=== PATIENT | male | born 1935 | race Caucasian/White ===

== ENCOUNTER 2017-11-30 13:15 | Inpatient (IN) | payer MEDICAID, MEDICARE ==
[~2017-11-30] VITALS: Ht 170.2 cm; Wt 51.6 kg
[~2017-11-30 13:15] MED LIST: BRIM5DRO3 EACHEYE; CARB1TAB PO; CARB1TAB43 PO; CARB1TAB48 PO; CEFD300C37 PO; CHOL10003 PO; CITA20TA9 PO; ENTA200T PO; ENTA200T22 PO; GABA-827 PO; MAGN400T26 PO; PRAM1TAB5 PO; TAMS-11 PO; TRAZ50TA18 PO
[2017-11-30] MEDS ORDERED: SODIUM CHLORIDE 0.9% 1,000ML IVBOLUS ONE (14:00)
[2017-11-30 14:21] LABS: BASOPHILS # (AUTO) 0.02 x10^3/uL (0-0.1); BASOPHILS % (AUTO) 0 % (0-1); EOSINOPHILS # (AUTO) 0.44 x10^3/uL (0-0.4); EOSINOPHILS % (AUTO) 7 % (1-7); LYMPHOCYTES # (AUTO) 1.01 x10^3/uL (1-3.4); LYMPHOCYTES % (AUTO) 16 % (22-44); MD NO; MEAN CORPUSCULAR HEMOGLOBIN 31.1 pg (27.5-34.5); MEAN CORPUSCULAR VOLUME 94.2 fL (81-97); MEAN PLATELET VOLUME 8.9 fL (7.4-10.4); MONOCYTES % (AUTO) 8 % (2-9); NEUTROPHILS # (AUTO) 4.51 x10^3/uL (1.8-6.8); NEUTROPHILS % (AUTO) 70 % (42-75); PLATELET COUNT 232 x10^3/uL (130-400); RED BLOOD COUNT 3.85 x10^6/uL (4.38-5.82)
[2017-11-30 14:29] LABS: INTERNATIONAL NORMALIZED RATIO 1.03 (0.93-1.1); PROTHROMBIN TIME 10.6 Seconds (9.6-11.5)
[2017-11-30] MEDS ORDERED: ERTAPENEM 1 GM in SODIUM CHLORIDE 0.9% 50 ML IV ONE (14:30)
[2017-11-30 14:31] LABS: ALANINE AMINOTRANSFERASE 8 U/L (12-78); ANION GAP 5 mmol/L (5-15); CALCIUM 7.9 mg/dL (8.5-10.1); CHLORIDE 109 mmol/L (98-107); CREATININE 0.58 mg/dL (0.7-1.3)
[2017-11-30] MEDS ORDERED: CARB1TAB48 PO (14:32)
[2017-11-30 14:34] LABS: ALKALINE PHOSPHATASE 88 U/L (45-117); BILIRUBIN,TOTAL 0.4 mg/dL (0.2-1.0); TOTAL PROTEIN 6.3 g/dL (6.4-8.2)
[2017-11-30] MEDS ORDERED: CIPR500T3 PO (14:36)
[2017-11-30 14:37] LABS: CULTURE INDICATED? YES; MICROSCOPIC INDICATED
[2017-11-30] MEDS ORDERED: ENTA200T22 PO (14:38)
[2017-11-30] MEDS ORDERED: LACT1CAP3 PO (14:39)
[2017-11-30] MEDS ORDERED: MULT-516 PO (14:40)
[2017-11-30] MEDS ORDERED: MAGN400O7 PO (14:40)
[2017-11-30] MEDS ORDERED: LACT-7 PO (14:41)
[2017-11-30] MEDS ORDERED: OXYC-302 PO (14:41)
[2017-11-30] MEDS ORDERED: PRAM1TAB PO (14:42)
[2017-11-30] MEDS ORDERED: POTA20TA14 PO (14:42)
[2017-11-30] MEDS: SODIUM CHLORIDE 0.9% 1,000 ML IV SCH (14:47)
[2017-11-30] MEDS ORDERED: MORPHINE SULFATE 4 MG/ML, 1ML ONE (14:56)
[2017-11-30] MEDS: TEMPLATE NON-FORMULARY MED. (Brimonidine Tartrate** (Alphagan P**) 1 DROP(S)) EACHEYE SCH ×2 (15:00→22:15)
[2017-11-30] MEDS ORDERED: CARBIDOPA PO SCH (15:00)
[2017-11-30] MEDS: HEPARIN 5,000 UNITS/ML, 1ML SQ SCH ×2 (15:00→22:15)
[2017-11-30] MEDS ORDERED: OXYcodone/APAP 5/325MG TABLET PO SCH (15:00)
[2017-11-30] MEDS ORDERED: ONDANSETRON ODT 4 MG PO PRN (15:00)
[2017-11-30] MEDS ORDERED: LEVODOPA PO SCH (15:00)
[2017-11-30] MEDS ORDERED: ONDANSETRON 2MG/ML, 2ML IVPush PRN (15:00)
[2017-11-30] MEDS ORDERED: [UNRECOGNIZED DRUG - OTHER] PO SCH (15:00)
[2017-11-30] MEDS ORDERED: VANCOMYCIN PER PHARMACY MC PRN (15:30)
[2017-11-30 15:59] VITALS: BP 141/74
[2017-11-30] MEDS ORDERED: PHARMACOKINETIC MONITORING MC PRN (16:00)
[2017-11-30] MEDS: CEFTRIAXONE PMX 1GM/50ML 50 ML IV SCH (17:26)
[2017-11-30] MEDS: VANCOMYCIN PMX 1GM/200ML 200 ML IVPB SCH (18:07)
[2017-11-30] MEDS: GABAPENTIN 400 MG CAPSULE PO SCH ×2 (18:11→20:42)
[2017-11-30 19:08] VITALS: BP 136/68
[2017-11-30] MEDS: [UNRECOGNIZED DRUG - OTHER] PO SCH (20:33)
[2017-11-30] MEDS: TRAZODONE 50MG TABLET PO SCH (20:42)
[2017-11-30] MEDS: PRAMIPEXOLE 0.5MG TABLET PO SCH (20:43)
[2017-11-30] MEDS: CARBIDOPA/LEVODOPA 25 MG/250 MG TABLET PO SCH (20:43)
[2017-11-30] MEDS: ENTACAPONE 200 MG TABLET PO SCH (20:43)
[2017-11-30] MEDS ORDERED: TRAZODONE 50MG TABLET PO SCH (21:00)
[2017-11-30] MEDS ORDERED: ENTACAPONE 200 MG TABLET PO SCH (21:00)
[2017-12-01 03:56] VITALS: BP 128/62
[2017-12-01] MEDS: GABAPENTIN 400 MG CAPSULE PO SCH ×4 (05:38→22:24)
[2017-12-01] MEDS: HEPARIN 5,000 UNITS/ML, 1ML SQ SCH ×3 (07:00→22:25)
[2017-12-01] MEDS: TEMPLATE NON-FORMULARY MED. (Brimonidine Tartrate** (Alphagan P**) 1 DROP(S)) EACHEYE SCH ×3 (07:00→23:00)
[2017-12-01 08:00] VITALS: BP 130/60
[2017-12-01] MEDS: ENTACAPONE 200 MG TABLET PO SCH ×2 (08:07→22:22)
[2017-12-01] MEDS: TAMSULOSIN 0.4 MG CAP.ER.24H PO SCH (08:07)
[2017-12-01] MEDS: MULTIVITAMIN 1 TABLET PO SCH (08:07)
[2017-12-01] MEDS: CITALOPRAM 20 MG TABLET PO SCH (08:07)
[2017-12-01] MEDS: CARBIDOPA/LEVODOPA 25 MG/250 MG TABLET PO SCH ×4 (08:07→22:24)
[2017-12-01] MEDS: [UNRECOGNIZED DRUG - OTHER] PO SCH ×2 (08:09→21:00)
[2017-12-01] MEDS: CHOLECALCIFEROL 1,000 UNIT TABLET PO SCH (08:09)
[2017-12-01] MEDS: PRAMIPEXOLE 0.5MG TABLET PO SCH ×2 (08:10→22:24)
[2017-12-01] MEDS: [UNRECOGNIZED DRUG - REMARK] PO SCH (08:10)
[2017-12-01] MEDS: SODIUM CHLORIDE 0.9% 1,000 ML IV SCH (10:47)
[2017-12-01 14:39] VITALS: BP 140/68
[2017-12-01] MEDS: CEFTRIAXONE PMX 1GM/50ML 50 ML IV SCH (16:18)
[2017-12-01 19:03] VITALS: BP 114/59
[2017-12-01] MEDS: TRAZODONE 50MG TABLET PO SCH (22:23)
[2017-12-02] VITALS (11 sets, daily range): BP systolic 80–175; BP diastolic 33–77
[2017-12-02 05:45] LABS: ANION GAP 6 mmol/L (5-15); CHLORIDE 106 mmol/L (98-107)
[2017-12-02 05:46] LABS: CREATININE 0.65 mg/dL (0.7-1.3)
[2017-12-02] MEDS: GABAPENTIN 400 MG CAPSULE PO SCH ×4 (06:40→22:32)
[2017-12-02] MEDS: HEPARIN 5,000 UNITS/ML, 1ML SQ SCH ×3 (07:00→22:31)
[2017-12-02] MEDS: TEMPLATE NON-FORMULARY MED. (Brimonidine Tartrate** (Alphagan P**) 1 DROP(S)) EACHEYE SCH ×3 (07:00→22:34)
[2017-12-02] MEDS ORDERED: POTASSIUM CHLORIDE 20 MEQ TAB.ER.PRT PO SCH (09:00)
[2017-12-02] MEDS: [UNRECOGNIZED DRUG - REMARK] PO SCH (09:00)
[2017-12-02] MEDS: [UNRECOGNIZED DRUG - OTHER] PO SCH ×2 (09:00→22:16)
[2017-12-02] MEDS: CARBIDOPA/LEVODOPA 25 MG/250 MG TABLET PO SCH ×3 (10:04→22:31)
[2017-12-02] MEDS: TAMSULOSIN 0.4 MG CAP.ER.24H PO SCH (10:04)
[2017-12-02] MEDS: MULTIVITAMIN 1 TABLET PO SCH (10:05)
[2017-12-02] MEDS: PRAMIPEXOLE 0.5MG TABLET PO SCH ×2 (10:05→22:31)
[2017-12-02] MEDS: ENTACAPONE 200 MG TABLET PO SCH ×2 (10:05→22:32)
[2017-12-02] MEDS: CITALOPRAM 20 MG TABLET PO SCH (10:05)
[2017-12-02] MEDS: ISOSORBIDE DINITRATE 10 MG TABLET PO SCH ×3 (10:06→20:19)
[2017-12-02] MEDS: MAGNESIUM HYDROXIDE 8%, 30ML UDC PO SCH (10:06)
[2017-12-02] MEDS: VANCOMYCIN PMX 1GM/200ML 200 ML IVPB SCH (11:25)
[2017-12-02] MEDS: CHOLECALCIFEROL 1,000 UNIT TABLET PO SCH (11:25)
[2017-12-02] MEDS ORDERED: PIPERACILLIN/TAZO/PMX 3.375GM 50 ML IV SCH (13:30)
[2017-12-02] MEDS ORDERED: SODIUM CHLORIDE 0.9%, 250ML IVBOLUS ONE ×2 (15:00→18:00)
[2017-12-02] MEDS: PIPERACILLIN/TAZO/PMX 4.5GM 100 ML IV SCH ×2 (16:00→22:30)
[2017-12-02] MEDS ORDERED: SODIUM CHLORIDE 0.9%, 500ML IVBOLUS ONE (20:00)
[2017-12-02] MEDS ORDERED: CARBIDOPA LEVO HOMEMEDPO SCH (21:00)
[2017-12-02] MEDS: SODIUM CHLORIDE 0.9% 1,000 ML IV SCH (22:30)
[2017-12-02] MEDS: TRAZODONE 50MG TABLET PO SCH (22:34)
[2017-12-03] VITALS (8 sets, daily range): BP systolic 71–149; BP diastolic 36–77
[2017-12-03 00:31] LABS: TROPONIN I < 0.015 ng/mL (0.000-0.045)
[2017-12-03] MEDS: PIPERACILLIN/TAZO/PMX 4.5GM 100 ML IV SCH (06:00)
[2017-12-03] MEDS: GABAPENTIN 400 MG CAPSULE PO SCH ×4 (06:00→21:02)
[2017-12-03] MEDS: HEPARIN 5,000 UNITS/ML, 1ML SQ SCH ×2 (06:03→14:30)
[2017-12-03 06:24] LABS: HCT (SEDRATE) 36.5 % (39.2-51.8)
[2017-12-03] MEDS: TEMPLATE NON-FORMULARY MED. (Brimonidine Tartrate** (Alphagan P**) 1 DROP(S)) EACHEYE SCH ×3 (07:00→23:00)
[2017-12-03] MEDS: [UNRECOGNIZED DRUG - OTHER] PO SCH ×2 (07:32→21:00)
[2017-12-03] MEDS: [UNRECOGNIZED DRUG - REMARK] PO SCH (07:33)
[2017-12-03] MEDS ORDERED: SENNA/DOCUSATE TABLET PO PRN (08:00)
[2017-12-03] MEDS ORDERED: BISACODYL 5 MG EC TABLET PO ONE (08:00)
[2017-12-03] MEDS ORDERED: APIXABAN 5 MG TABLET PO SCH (09:00)
[2017-12-03] MEDS: MULTIVITAMIN 1 TABLET PO SCH (09:00)
[2017-12-03] MEDS ORDERED: BISACODYL 5 MG EC TABLET PO PRN (09:30)
[2017-12-03 09:52] LABS: TROPONIN I < 0.015 ng/mL (0.000-0.045)
[2017-12-03] MEDS ORDERED: [UNRECOGNIZED DRUG - OTHER] PO SCH (10:00)
[2017-12-03] MEDS ORDERED: CARBIDOPA PO SCH (10:00)
[2017-12-03] MEDS ORDERED: LEVODOPA PO SCH (10:00)
[2017-12-03] MEDS ORDERED: APIXABAN 2.5 MG TABLET PO SCH (10:01)
[2017-12-03] MEDS: PRAMIPEXOLE 0.5MG TABLET PO SCH ×2 (10:33→21:03)
[2017-12-03] MEDS: CITALOPRAM 20 MG TABLET PO SCH (10:33)
[2017-12-03] MEDS: TAMSULOSIN 0.4 MG CAP.ER.24H PO SCH (10:33)
[2017-12-03] MEDS: ENTACAPONE 200 MG TABLET PO SCH ×2 (10:34→21:02)
[2017-12-03] MEDS: CARBIDOPA/LEVODOPA 25 MG/250 MG TABLET PO SCH ×4 (10:34→21:03)
[2017-12-03] MEDS: CHOLECALCIFEROL 1,000 UNIT TABLET PO SCH (10:34)
[2017-12-03] MEDS: ISOSORBIDE DINITRATE 10 MG TABLET PO SCH ×3 (10:35→21:03)
[2017-12-03] MEDS: MEROPENEM 1 GM in SODIUM CHLORIDE 0.9% 100 ML IV SCH ×2 (11:00→22:19)
[2017-12-03] MEDS ORDERED: SODIUM CHLORIDE 0.9% 1,000 ML IV SCH (19:00)
[2017-12-03] MEDS ORDERED: SODIUM CHLORIDE 0.9% 1,000ML IVBOLUS ONE (19:00)
[2017-12-03] MEDS ORDERED: CARBIDOPA/LEVODOPA 25 MG/250 MG TABLET PO SCH (21:00)
[2017-12-03] MEDS: TRAZODONE 50MG TABLET PO SCH (21:02)
[2017-12-04 01:14] VITALS: BP 144/61
[2017-12-04] MEDS: HEPARIN 5,000 UNITS/ML, 1ML SQ SCH ×2 (02:33→15:29)
[2017-12-04] MEDS: MEROPENEM 1 GM in SODIUM CHLORIDE 0.9% 100 ML IV SCH ×3 (05:42→22:03)
[2017-12-04] MEDS: GABAPENTIN 400 MG CAPSULE PO SCH ×4 (05:42→22:04)
[2017-12-04 07:51] VITALS: BP 117/41
[2017-12-04] MEDS: TEMPLATE NON-FORMULARY MED. (Brimonidine Tartrate** (Alphagan P**) 1 DROP(S)) EACHEYE SCH ×2 (08:00→16:00)
[2017-12-04] MEDS: MAGNESIUM HYDROXIDE 8%, 30ML UDC PO SCH (08:15)
[2017-12-04] MEDS: ENTACAPONE 200 MG TABLET PO SCH ×2 (08:16→22:04)
[2017-12-04] MEDS: TAMSULOSIN 0.4 MG CAP.ER.24H PO SCH (08:16)
[2017-12-04] MEDS: CITALOPRAM 20 MG TABLET PO SCH (08:16)
[2017-12-04] MEDS: PRAMIPEXOLE 0.5MG TABLET PO SCH ×2 (08:16→22:04)
[2017-12-04] MEDS: CARBIDOPA/LEVODOPA 25 MG/250 MG TABLET PO SCH ×4 (08:16→22:04)
[2017-12-04] MEDS: MULTIVITAMIN 1 TABLET PO SCH (08:17)
[2017-12-04] MEDS: [UNRECOGNIZED DRUG - REMARK] PO SCH (08:18)
[2017-12-04] MEDS: [UNRECOGNIZED DRUG - OTHER] PO SCH ×2 (08:18→21:00)
[2017-12-04] MEDS: CHOLECALCIFEROL 1,000 UNIT TABLET PO SCH (08:19)
[2017-12-04 12:22] VITALS: BP 117/62
[2017-12-04] MEDS: ACETAMINOPHEN 325 MG TABLET PO PRN (15:29)
[2017-12-04] MEDS ORDERED: CARB1TAB47 PO ×2 (18:57)
[2017-12-04 21:31] VITALS: BP 144/72
[2017-12-04] MEDS: TRAZODONE 50MG TABLET PO SCH (22:04)
[2017-12-05 01:11] VITALS: BP 156/75
[2017-12-05] MEDS: HEPARIN 5,000 UNITS/ML, 1ML SQ SCH ×2 (01:50→15:36)
[2017-12-05] MEDS: GABAPENTIN 400 MG CAPSULE PO SCH ×4 (05:22→21:51)
[2017-12-05] MEDS: MEROPENEM 1 GM in SODIUM CHLORIDE 0.9% 100 ML IV SCH ×3 (05:22→21:57)
[2017-12-05 06:34] VITALS: BP 168/69
[2017-12-05] MEDS: TEMPLATE NON-FORMULARY MED. (Brimonidine Tartrate** (Alphagan P**) 1 DROP(S)) EACHEYE SCH ×3 (08:00→15:36)
[2017-12-05] MEDS: ENTACAPONE 200 MG TABLET PO SCH ×2 (08:10→21:51)
[2017-12-05] MEDS: PRAMIPEXOLE 0.5MG TABLET PO SCH ×2 (08:11→21:50)
[2017-12-05] MEDS: TAMSULOSIN 0.4 MG CAP.ER.24H PO SCH (08:11)
[2017-12-05] MEDS: CARBIDOPA/LEVODOPA 25 MG/250 MG TABLET PO SCH ×4 (08:12→21:51)
[2017-12-05] MEDS: [UNRECOGNIZED DRUG - REMARK] PO SCH (08:12)
[2017-12-05] MEDS: CHOLECALCIFEROL 1,000 UNIT TABLET PO SCH (08:12)
[2017-12-05] MEDS: BISACODYL 10 MG SUPP PR SCH (08:12)
[2017-12-05] MEDS: CITALOPRAM 20 MG TABLET PO SCH (08:12)
[2017-12-05] MEDS: MULTIVITAMIN 1 TABLET PO SCH (08:12)
[2017-12-05] MEDS: [UNRECOGNIZED DRUG - OTHER] PO SCH (08:12)
[2017-12-05] MEDS ORDERED: ISOSORBIDE DINITRATE 10 MG TABLET PO SCH ×2 (09:00→16:00)
[2017-12-05] MEDS ORDERED: MAGNESIUM CITRATE 300ML ORAL SOL PO ONE (12:30)
[2017-12-05 14:17] VITALS: BP 94/36
[2017-12-05 16:03] VITALS: BP 86/36
[2017-12-05] MEDS ORDERED: SODIUM CHLORIDE 0.9%, 500ML IVBOLUS ONE (16:30)
[2017-12-05 17:42] VITALS: BP 97/50
[2017-12-05 20:00] VITALS: BP 104/54
[2017-12-05] MEDS: BRIMONIDINE TARTRATE OPHTH 0.15%, 5ML EACHEYE SCH (21:50)
[2017-12-05] MEDS: TRAZODONE 50MG TABLET PO SCH (21:50)
[2017-12-06 02:25] VITALS: BP 145/65
[2017-12-06] MEDS: HEPARIN 5,000 UNITS/ML, 1ML SQ SCH ×2 (04:00→17:23)
[2017-12-06 05:42] LABS: BASOPHILS # (AUTO) 0.01 x10^3/uL (0-0.1); BASOPHILS % (AUTO) 0 % (0-1); EOSINOPHILS # (AUTO) 0.35 x10^3/uL (0-0.4); EOSINOPHILS % (AUTO) 7 % (1-7); LYMPHOCYTES # (AUTO) 0.78 x10^3/uL (1-3.4); LYMPHOCYTES % (AUTO) 15 % (22-44); MD NO; MEAN CORPUSCULAR HEMOGLOBIN 31.8 pg (27.5-34.5); MEAN CORPUSCULAR HGB CONC 33.7 g/dL (33.2-36.2); MEAN CORPUSCULAR VOLUME 94.3 fL (81-97); MEAN PLATELET VOLUME 9.4 fL (7.4-10.4); MONOCYTES # (AUTO) 0.47 x10^3/uL (0.2-0.8); MONOCYTES % (AUTO) 9 % (2-9); NEUTROPHILS # (AUTO) 3.57 x10^3/uL (1.8-6.8); NEUTROPHILS % (AUTO) 69 % (42-75); PLATELET COUNT 195 x10^3/uL (130-400); RED CELL DISTRIBUTION WIDTH 13.8 % (9.4-14.8)
[2017-12-06 05:50] LABS: HCT (SEDRATE) 35.9 % (39.2-51.8)
[2017-12-06 05:52] LABS: CHLORIDE 109 mmol/L (98-107)
[2017-12-06] MEDS: BRIMONIDINE TARTRATE OPHTH 0.15%, 5ML EACHEYE SCH ×3 (06:01→21:59)
[2017-12-06] MEDS: MEROPENEM 1 GM in SODIUM CHLORIDE 0.9% 100 ML IV SCH ×3 (06:01→22:17)
[2017-12-06] MEDS: GABAPENTIN 400 MG CAPSULE PO SCH ×4 (06:01→21:58)
[2017-12-06 06:10] LABS: ALANINE AMINOTRANSFERASE 9 U/L (12-78); ALBUMIN 2.8 g/dL (3.4-5.0); ALKALINE PHOSPHATASE 76 U/L (45-117); ANION GAP 5 mmol/L (5-15); BILIRUBIN,TOTAL 0.4 mg/dL (0.2-1.0); C-REACTIVE PROTEIN, QUANT 0.36 mg/dL (0.02-0.49); CALCIUM 8.5 mg/dL (8.5-10.1)
[2017-12-06 07:07] VITALS: BP 122/66
[2017-12-06] MEDS: ENTACAPONE 200 MG TABLET PO SCH ×2 (08:38→21:57)
[2017-12-06] MEDS: CARBIDOPA/LEVODOPA 25 MG/250 MG TABLET PO SCH ×4 (08:38→21:58)
[2017-12-06] MEDS: LACTOBACILLUS CHEW TABLET PO SCH (08:39)
[2017-12-06] MEDS: CITALOPRAM 20 MG TABLET PO SCH (08:39)
[2017-12-06] MEDS: PRAMIPEXOLE 0.5MG TABLET PO SCH ×2 (08:39→21:58)
[2017-12-06] MEDS: CHOLECALCIFEROL 1,000 UNIT TABLET PO SCH (08:39)
[2017-12-06] MEDS: TAMSULOSIN 0.4 MG CAP.ER.24H PO SCH (08:39)
[2017-12-06] MEDS: MULTIVITAMIN 1 TABLET PO SCH (08:39)
[2017-12-06] MEDS: MAGNESIUM HYDROXIDE 8%, 30ML UDC PO SCH (08:41)
[2017-12-06] MEDS: BISACODYL 10 MG SUPP PR SCH (08:41)
[2017-12-06 14:38] VITALS: BP 127/57
[2017-12-06 20:00] VITALS: BP 115/67
[2017-12-06] MEDS: TRAZODONE 50MG TABLET PO SCH (21:58)
[2017-12-07 02:58] VITALS: BP 122/61
[2017-12-07] MEDS: MEROPENEM 1 GM in SODIUM CHLORIDE 0.9% 100 ML IV SCH ×3 (05:59→23:17)
[2017-12-07] MEDS: GABAPENTIN 400 MG CAPSULE PO SCH ×4 (06:00→20:51)
[2017-12-07] MEDS: BRIMONIDINE TARTRATE OPHTH 0.15%, 5ML EACHEYE SCH ×3 (06:00→22:00)
[2017-12-07] MEDS: HEPARIN 5,000 UNITS/ML, 1ML SQ SCH ×2 (06:00→17:53)
[2017-12-07 07:41] VITALS: BP 106/59
[2017-12-07] MEDS: BISACODYL 10 MG SUPP PR SCH (07:44)
[2017-12-07] MEDS: CARBIDOPA/LEVODOPA 25 MG/250 MG TABLET PO SCH ×4 (08:23→20:51)
[2017-12-07] MEDS: PRAMIPEXOLE 0.5MG TABLET PO SCH ×2 (08:23→20:51)
[2017-12-07] MEDS: ENTACAPONE 200 MG TABLET PO SCH ×2 (08:24→20:49)
[2017-12-07] MEDS: LACTOBACILLUS CHEW TABLET PO SCH (08:24)
[2017-12-07] MEDS: CITALOPRAM 20 MG TABLET PO SCH (08:24)
[2017-12-07] MEDS: TAMSULOSIN 0.4 MG CAP.ER.24H PO SCH (08:24)
[2017-12-07] MEDS: CHOLECALCIFEROL 1,000 UNIT TABLET PO SCH (08:25)
[2017-12-07] MEDS: MULTIVITAMIN 1 TABLET PO SCH (08:25)
[2017-12-07 14:30] VITALS: BP 124/64
[2017-12-07 17:18] VITALS: BP 108/59
[2017-12-07 19:44] VITALS: BP 92/53
[2017-12-07] MEDS: TRAZODONE 50MG TABLET PO SCH (20:49)
[2017-12-08 01:02] VITALS: BP 136/78
[2017-12-08] MEDS: ACETAMINOPHEN 325 MG TABLET PO PRN ×2 (01:26→12:55)
[2017-12-08] MEDS: BRIMONIDINE TARTRATE OPHTH 0.15%, 5ML EACHEYE SCH ×4 (05:58→22:10)
[2017-12-08] MEDS: GABAPENTIN 400 MG CAPSULE PO SCH ×4 (05:58→20:30)
[2017-12-08] MEDS: HEPARIN 5,000 UNITS/ML, 1ML SQ SCH ×2 (05:58→18:24)
[2017-12-08] MEDS: MEROPENEM 1 GM in SODIUM CHLORIDE 0.9% 100 ML IV SCH ×3 (05:58→22:10)
[2017-12-08 08:36] VITALS: BP_SYST 128; BP_SYST 168; BP_DIAS 103; BP_DIAS 62
[2017-12-08] MEDS: CARBIDOPA/LEVODOPA 25 MG/250 MG TABLET PO SCH ×4 (08:41→20:31)
[2017-12-08] MEDS: MAGNESIUM HYDROXIDE 8%, 30ML UDC PO SCH (09:00)
[2017-12-08] MEDS: MULTIVITAMIN 1 TABLET PO SCH (10:41)
[2017-12-08] MEDS: ENTACAPONE 200 MG TABLET PO SCH ×2 (10:42→20:30)
[2017-12-08] MEDS: CITALOPRAM 20 MG TABLET PO SCH (10:42)
[2017-12-08] MEDS: CHOLECALCIFEROL 1,000 UNIT TABLET PO SCH (10:43)
[2017-12-08] MEDS: PRAMIPEXOLE 0.5MG TABLET PO SCH ×2 (10:43→20:33)
[2017-12-08] MEDS: TAMSULOSIN 0.4 MG CAP.ER.24H PO SCH (10:43)
[2017-12-08] MEDS: LACTOBACILLUS CHEW TABLET PO SCH (10:52)
[2017-12-08 14:30] VITALS: BP 119/59
[2017-12-08 16:21] VITALS: BP 109/63
[2017-12-08 19:37] VITALS: BP 135/63
[2017-12-08] MEDS: TRAZODONE 50MG TABLET PO SCH (20:31)
[2017-12-09 03:07] VITALS: BP 115/57
[2017-12-09] MEDS: MEROPENEM 1 GM in SODIUM CHLORIDE 0.9% 100 ML IV SCH ×2 (05:23→13:52)
[2017-12-09] MEDS: GABAPENTIN 400 MG CAPSULE PO SCH ×2 (05:23→13:54)
[2017-12-09] MEDS: BRIMONIDINE TARTRATE OPHTH 0.15%, 5ML EACHEYE SCH ×2 (05:23→13:56)
[2017-12-09] MEDS: HEPARIN 5,000 UNITS/ML, 1ML SQ SCH (05:23)
[2017-12-09] MEDS: LACTOBACILLUS CHEW TABLET PO SCH (08:31)
[2017-12-09] MEDS: TAMSULOSIN 0.4 MG CAP.ER.24H PO SCH (08:31)
[2017-12-09] MEDS: CHOLECALCIFEROL 1,000 UNIT TABLET PO SCH (08:31)
[2017-12-09] MEDS: MULTIVITAMIN 1 TABLET PO SCH (08:32)
[2017-12-09] MEDS: CITALOPRAM 20 MG TABLET PO SCH (08:32)
[2017-12-09] MEDS: ENTACAPONE 200 MG TABLET PO SCH (08:32)
[2017-12-09] MEDS: PRAMIPEXOLE 0.5MG TABLET PO SCH (08:32)
[2017-12-09] MEDS: CARBIDOPA/LEVODOPA 25 MG/250 MG TABLET PO SCH ×2 (08:32→13:53)
[2017-12-09 08:55] VITALS: BP 137/73
[2017-12-09] MEDS ORDERED: CARB1TAB25 PO ×2 (12:55)
[2017-12-09] MEDS ORDERED: SENN1TAB7 PO (12:55)
[2017-12-09] MEDS ORDERED: HYDR-3341 PO (12:55)
[2017-12-09] MEDS ORDERED: ACET325T14 PO (12:55)
[2017-12-09 13:28] VITALS: BP 95/55
[2017-12-10] MEDS ORDERED: METOPROLOL SUCCINATE 25 MG TAB.ER.24H PO SCH (06:00)
[2017-12-10] MEDS ORDERED: TRIAMTERENE-HCTZ 37.5/25 MG TABLET PO SCH (09:00)
[2017-12-10] MEDS ORDERED: LOSARTAN 25MG TABLET PO SCH (09:00)
== END 2017-12-09 16:10 | DRG 871 ==
LOC: ED 13:31 → EDIP 14:32 → 3NE 15:16 → 4WST 12-02 12:33 → 3NE 12-07 16:37
PROVIDERS: ADMIT Hospitalist; ATTEND Hospitalist
PROC: 0T9B70Z Drainage of Bladder with Drainage Device, Via Natural or Artificial Opening (ICD-10-PCS; principal; 2017-11-30)
DX: A41.9 Sepsis, unspecified organism (principal); E43 Unspecified severe protein-calorie malnutrition; N30.80 Other cystitis without hematuria; Z16.12 Extended spectrum beta lactamase (ESBL) resistance; B96.1 Klebsiella pneumoniae [K. pneumoniae] as the cause of diseases classified elsewhere; B96.4 Proteus (mirabilis) (morganii) as the cause of diseases classified elsewhere; B96.89 Other specified bacterial agents as the cause of diseases classified elsewhere; N40.0 Benign prostatic hyperplasia without lower urinary tract symptoms; G20 Parkinson's disease; L89.90 Pressure ulcer of unspecified site, unspecified stage; B95.62 Methicillin resistant Staphylococcus aureus infection as the cause of diseases classified elsewhere; E78.5 Hyperlipidemia, unspecified; E86.0 Dehydration; G25.81 Restless legs syndrome; G47.00 Insomnia, unspecified; G89.29 Other chronic pain; M54.9 Dorsalgia, unspecified; H40.9 Unspecified glaucoma; I10 Essential (primary) hypertension; I48.91 Unspecified atrial fibrillation; K59.00 Constipation, unspecified; N40.1 Benign prostatic hyperplasia with lower urinary tract symptoms; R33.8 Other retention of urine; Z66 Do not resuscitate; Z82.49 Family history of ischemic heart disease and other diseases of the circulatory system; Z88.8 Allergy status to other drugs, medicaments and biological substances
CPT/HCPCS: 36415; 71045; 76770; 80048; 80053; 81001; 82962; 83605; 83735; 84100; 84484; 85025; 85610; 85651; 86140; 87040; 87077; 87086; 87186; 93005; 93306; 96360; 96361; J0696; J1335; J1644; J2185; J2543; J3370; J7030; J7040; J7050